=== PATIENT | female | born 1965 | race Caucasian/White ===

== ENCOUNTER 2020-06-19 10:54 | Day surgery (SDC) | payer OTHER ==
[~2020-06-19] VITALS: Ht 177.8 cm; Wt 69.4 kg
[~2020-06-19 10:54] MED LIST: AMPDEX10CR PO; CALCIUM MAGNES1 EAC1 PO; PROBIOTIC1 EA13 PO; XANAX PO
== END 2020-06-19 13:55 | disposition home or self-care (01) ==
LOC: ORSCSDS 10:54
PROVIDERS: Internal Medicine Gastroenterology
PROC: 0DJD8ZZ Inspection of Lower Intestinal Tract, Via Natural or Artificial Opening Endoscopic (ICD-10-PCS; principal; 2020-06-19 12:15)
DX: Z12.11 Encounter for screening for malignant neoplasm of colon (principal); Z86.010 Personal history of colon polyps; K57.30 Diverticulosis of large intestine without perforation or abscess without bleeding; K64.8 Other hemorrhoids; Z79.899 Other long term (current) drug therapy
CPT/HCPCS: J2704; J7120